=== PATIENT | female | born 1975 | race Caucasian/White ===

== ENCOUNTER 2018-01-05 16:28 | Inpatient (IN) ==
--- NOTE | 2018-01-05 16:54 | Emergency Department Note ---
Disposition Clinical Impression: Alcohol abuse, Suicidal ideation Alcohol intoxication Qualifiers: Complication of substance-induced condition: uncomplicated Qualified Code(s): F10.920 - Alcohol use, unspecified with intoxication, uncomplicated Disposition: Admitted As Inpatient Condition: Fair Time of Disposition: 18:46 Psych HPI - General Chief Complaint: ED Psychiatric Symptoms Stated Complaint: SI/psych eval Time Seen by Provider: 01/05/18 16:35 Source: patient Mode of arrival: ambulatory Limitations: no limitations Nursing Notes Reviewed: Yes Vital Signs Reviewed: Yes - History of Present Illness HPI Narrative: 42-year-old female who was roughly 7 weeks , who has been drinking alcohol and is a chronic alcoholic, arrives to the emergency department with depression and suicidal ideation without a plan. The patient states is been ongoing for quite some time and was actually seen a few days ago and evaluated with the patient admits that she did not tell the truth to the psychiatric team at that time. The patient states that she is only had a couple shots of alcohol today and that she wants to get help. She denies any other complaints at this time. She is resting comfortably. Sister is in the room with her and is accompanying her. - Related Data Home Medications Medication Instructions Recorded Confirmed Buprenorphine HCl 8 mg SL BID 01/05/18 01/05/18 Medroxyprogesterone Acetate 150 mg PO Q12W 01/05/18 01/05/18 Allergies Allergy/AdvReac Type Severity Reaction Status Date / Time No Known Allergies Allergy Verified 01/05/18 16:34 All systems ED: reviewed and negative except as stated. Constitutional: Denies: fever, chills, weakness ENT ED: Denies: dysphagia Cardiovascular: Denies: chest pain Respiratory: Denies: dyspnea Gastrointestinal: Denies: abdominal pain Genitourinary: Denies: urgency, dysuria Musculoskeletal: Denies: back pain, neck pain Integumentary: Denies: rash, abrasion Neurological: Denies: headache Past Medical History - Past Medical History Attestation: Yes The following information was validated with the patient. Medical history: Reports: no medical history Surgical history: Reports: non-contributory Psychiatric history: Reports: no psych history - Social History Smoking Status: Never smoker Alcohol use: Reports: heavy, recent Drug use: Reports: none Physical Exam - General Limitations: no limitations General appearance: alert, appears intoxicated, anxious - Head Head exam: atraumatic, normocephalic, normal inspection - Eye Eye exam: Present: normal appearance, PERRL, EOMI - ENT ENT exam: normal exam, normal oropharynx, mucous membranes moist - Neck Neck exam: Present: normal inspection, full ROM, trachea midline - Chest Chest inspection: Present: normal inspection, symmetric chest wall rise - Respiratory Respiratory exam: Present: normal lung sounds bilaterally - Cardiovascular Cardiovascular exam: Present: normal rhythm, tachycardia, normal heart sounds - Extremities Exam Extremities exam: Present: normal inspection, full ROM. Absent: tenderness, pedal edema - Neurological Exam Neurological exam: Present: alert, oriented X3 - Psychiatric Psychiatric exam: Present: depressed, anxious, suicidal ideation. Absent: flat affect, manic, homicidal ideation - Skin Skin exam: Present: warm, dry, intact, normal color Course - Reevaluation(s) Reevaluation #1: Patient's Tylenol level was noted to be 24. The patient does state that she took one Tylenol previously. She denies taking any more than one Tylenol. No other complaints noted. Time: 17:54 Vital Signs Temperature 97.7 F 01/05/18 16:35 Pulse Rate 110 01/05/18 16:35 Respiratory Rate 20 01/05/18 16:35 Blood Pressure 150/91 01/05/18 16:35 O2 Sat by Pulse Oximetry 95 01/05/18 16:35 Temperature 98.6 F 01/05/18 19:49 Pulse Rate 92 01/05/18 19:49 Respiratory Rate 18 01/05/18 19:49 Blood Pressure 129/84 01/05/18 19:49 O2 Sat by Pulse Oximetry 98 01/05/18 19:49 Oxygen Delivery Oxygen Delivery Room Air Psych - MDM Narrative Medical decision making narrative: Patient's workup in the emergency department demonstrates findings concerning for alcohol abuse, opiate and alcohol consistent with intoxication, and concern for withdrawal symptoms. The patient will be admitted to the hospitalist at this time, accepted by Dr. Yao. - Lab Data Result diagrams: 01/05/18 16:36 01/05/18 17:00 Lab Results 01/05/18 01/05/18 01/05/18 Range/Units 16:36 16:36 16:36 WBC 5.0 (4.3-11.1) K/mcL RBC 4.57 (3.82-4.97) M/mcL Hgb 14.9 (11.5-15.4) g/dL Hct 42.6 (35.3-44.9) % MCV 93.2 (83.0-100.0) fL MCH 32.6 (28.0-33.3) pg MCHC 35.0 (31.6-35.5) g/dL RDW 13.9 (11.5-14.5) % Plt Count 156 (140-400) K/mcL MPV 9.5 (9.4-12.4) fL Immature Gran % 0.4 (0-4) % Seg Neutrophils % 54.7 % Lymphocytes % 33.3 % Monocytes % 8.4 % Eosinophils % 2.2 % Basophils % 1.0 % Neutrophils # 2.7 (1.6-8.9) K/mcL Lymphocytes # 1.7 (0.6-4.6) K/mcL Monocytes # 0.4 (0.0-1.3) K/mcL Eosinophils # 0.1 (0.0-0.6) K/mcL Basophils # 0.1 (0.0-0.2) K/mcL Sodium (136-145) mEq/L Potassium (3.5-5.1) mEq/L Chloride (98-107) mEq/L Carbon Dioxide (23-29) mEq/L BUN (6-20) mg/dL Creatinine (0.60-1.20) mg/dL Est GFR ( Amer) (> 60) Est GFR (Non-Af Amer) (> 60) BUN/Creatinine Ratio (6-26) Glucose (70-105) mg/dL Calculated Osmolality (280-300) Calcium (8.6-10.3) mg/dL Serum , Qual (Negative) Urine Color Yellow (Yellow) Urine Clarity Cloudy A (Clear) Urine pH 6.5 (5.0-8.0) pH Units Ur Specific [place] 1.017 (1.010-1.025) Urine Protein 30 H (Neg-Trace) mg/dL Urine Glucose (UA) Normal (Normal) mg/dL Urine Ketones Negative (Negative) mg/dL Urine Blood Small H (Negative) Urine Nitrite Negative (Negative) Urine Bilirubin Negative (Negative) Urine Urobilinogen Normal (Normal) mg/dL Ur Leukocyte Esterase Moderate H (Negative) Urine Microscopic RBC 0-3 (0-3) per hpf Urine Microscopic WBC 15-30 H (0-3) per hpf Ur Squamous Epith Cells Many H (None-Few) per lpf Urine Bacteria Few (None-Few) per hpf Hyaline Casts None Seen (None-Few) per lpf Salicylates (15.0-30.0) mg/dL Acetaminophen (10-20) mcg/mL Ur Drug Screen Interp See Below Ethyl Alcohol (Less than 10) mg/dL 01/05/18 01/05/18 Range/Units 17:00 17:00 WBC (4.3-11.1) K/mcL RBC (3.82-4.97) M/mcL Hgb (11.5-15.4) g/dL Hct (35.3-44.9) % MCV (83.0-100.0) fL MCH (28.0-33.3) pg MCHC (31.6-35.5) g/dL RDW (11.5-14.5) % Plt Count (140-400) K/mcL MPV (9.4-12.4) fL Immature Gran % (0-4) % Seg Neutrophils % % Lymphocytes % % Monocytes % % Eosinophils % % Basophils % % Neutrophils # (1.6-8.9) K/mcL Lymphocytes # (0.6-4.6) K/mcL Monocytes # (0.0-1.3) K/mcL Eosinophils # (0.0-0.6) K/mcL Basophils # (0.0-0.2) K/mcL Sodium 144 (136-145) mEq/L Potassium 3.3 L (3.5-5.1) mEq/L Chloride 107 (98-107) mEq/L Carbon Dioxide 24 (23-29) mEq/L BUN 4 L (6-20) mg/dL Creatinine 0.67 (0.60-1.20) mg/dL Est GFR ( Amer) > 60 (> 60) Est GFR (Non-Af Amer) > 60 (> 60) BUN/Creatinine Ratio 6 (6-26) Glucose 108 H (70-105) mg/dL Calculated Osmolality 295 (280-300) Calcium 9.2 (8.6-10.3) mg/dL Serum , Qual Negative (Negative) Urine Color (Yellow) Urine Clarity (Clear) Urine pH (5.0-8.0) pH Units Ur Specific [place] (1.010-1.025) Urine Protein (Neg-Trace) mg/dL Urine Glucose (UA) (Normal) mg/dL Urine Ketones (Negative) mg/dL Urine Blood (Negative) Urine Nitrite (Negative) Urine Bilirubin (Negative) Urine Urobilinogen (Normal) mg/dL Ur Leukocyte Esterase (Negative) Urine Microscopic RBC (0-3) per hpf Urine Microscopic WBC (0-3) per hpf Ur Squamous Epith Cells (None-Few) per lpf Urine Bacteria (None-Few) per hpf Hyaline Casts (None-Few) per lpf Salicylates < 2.5 L (15.0-30.0) mg/dL Acetaminophen 24 H (10-20) mcg/mL Ur Drug Screen Interp Ethyl Alcohol 349 H (Less than 10) mg/dL Psychiatric Medical Clearance - Medical Clearance Checklist Medical History: No Social History Section defined Current Vitals: Last Vital Signs Temp 98.6 F 01/05/18 19:49 Pulse 92 01/05/18 19:49 Resp 18 01/05/18 19:49 BP 129/84 01/05/18 19:49 Pulse Ox 98 01/05/18 19:49 Psychiatric Lab Panel: Drug Levels and Toxicity 01/05/18 17:00 Acetaminophen 24 H Ethyl Alcohol 349 H Abnormal Labs: Abnormal lab results Potassium 3.3 mEq/L (3.5-5.1) L 01/05/18 17:00 BUN 4 mg/dL (6-20) L 01/05/18 17:00 Glucose 108 mg/dL (70-105) H 01/05/18 17:00 Urine Clarity Cloudy (Clear) A 01/05/18 16:36 Urine Protein 30 mg/dL (Neg-Trace) H 01/05/18 16:36 Urine Blood Small (Negative) H 01/05/18 16:36 Ur Leukocyte Esterase Moderate (Negative) H 01/05/18 16:36 Urine Microscopic WBC 15-30 per hpf (0-3) H 01/05/18 16:36 Ur Squamous Epith Cells Many per lpf (None-Few) H 01/05/18 16:36 Salicylates < 2.5 mg/dL (15.0-30.0) L 01/05/18 17:00 Acetaminophen 24 mcg/mL (10-20) H 01/05/18 17:00 Ethyl Alcohol 349 mg/dL (Less than 10) H 01/05/18 17:00
[2018-01-05] MEDS ORDERED: *HR* LORazepam 1 MG TABLET PO ONE (17:11)
--- NOTE | 2018-01-05 17:15 | Emergency Department Note ---
Disposition Clinical Impression: Alcohol abuse, Suicidal ideation Alcohol intoxication Qualifiers: Complication of substance-induced condition: uncomplicated Qualified Code(s): F10.920 - Alcohol use, unspecified with intoxication, uncomplicated Disposition: Admitted As Inpatient Condition: Fair General Adult HPI - General Chief complaint: ED Psychiatric Symptoms Stated complaint: SI/psych eval Time Seen by Provider: 01/05/18 16:35 Source: patient Mode of arrival: ambulatory Limitations: no limitations - History of Present Illness Pain Scale: 7 - Related Data Home Medications Medication Instructions Recorded Confirmed Buprenorphine HCl 8 mg SL BID 01/05/18 01/05/18 Medroxyprogesterone Acetate 150 mg PO Q12W 01/05/18 01/05/18 Allergies Allergy/AdvReac Type Severity Reaction Status Date / Time No Known Allergies Allergy Verified 01/05/18 16:34 Constitutional: Denies: fever, chills, weakness ENT ED: Denies: dysphagia Cardiovascular: Denies: chest pain Respiratory: Denies: dyspnea Gastrointestinal: Denies: abdominal pain Genitourinary: Denies: urgency, dysuria Musculoskeletal: Denies: back pain, neck pain Integumentary: Denies: rash, abrasion Neurological: Denies: headache Past Medical History - Past Medical History Medical history: Reports: no medical history Surgical history: Reports: non-contributory Psychiatric history: Reports: no psych history - Social History Smoking Status: Never smoker Alcohol use: Reports: heavy, recent Drug use: Reports: none Physical Exam - General Limitations: no limitations General appearance: alert, appears intoxicated, anxious Course Vital Signs Temperature 97.7 F 01/05/18 16:35 Pulse Rate 110 01/05/18 16:35 Respiratory Rate 20 01/05/18 16:35 Blood Pressure 150/91 01/05/18 16:35 O2 Sat by Pulse Oximetry 95 01/05/18 16:35 Temperature 98.6 F 01/05/18 19:49 Pulse Rate 92 01/05/18 19:49 Respiratory Rate 18 01/05/18 19:49 Blood Pressure 129/84 01/05/18 19:49 O2 Sat by Pulse Oximetry 98 01/05/18 19:49 Oxygen Delivery Oxygen Delivery Room Air Medical Decision Making - Lab Data Result diagrams: 01/05/18 16:36 01/05/18 17:00 Lab Results 01/05/18 01/05/18 01/05/18 Range/Units 16:36 16:36 16:36 WBC 5.0 (4.3-11.1) K/mcL RBC 4.57 (3.82-4.97) M/mcL Hgb 14.9 (11.5-15.4) g/dL Hct 42.6 (35.3-44.9) % MCV 93.2 (83.0-100.0) fL MCH 32.6 (28.0-33.3) pg MCHC 35.0 (31.6-35.5) g/dL RDW 13.9 (11.5-14.5) % Plt Count 156 (140-400) K/mcL MPV 9.5 (9.4-12.4) fL Immature Gran % 0.4 (0-4) % Seg Neutrophils % 54.7 % Lymphocytes % 33.3 % Monocytes % 8.4 % Eosinophils % 2.2 % Basophils % 1.0 % Neutrophils # 2.7 (1.6-8.9) K/mcL Lymphocytes # 1.7 (0.6-4.6) K/mcL Monocytes # 0.4 (0.0-1.3) K/mcL Eosinophils # 0.1 (0.0-0.6) K/mcL Basophils # 0.1 (0.0-0.2) K/mcL Sodium (136-145) mEq/L Potassium (3.5-5.1) mEq/L Chloride (98-107) mEq/L Carbon Dioxide (23-29) mEq/L BUN (6-20) mg/dL Creatinine (0.60-1.20) mg/dL Est GFR ( Amer) (> 60) Est GFR (Non-Af Amer) (> 60) BUN/Creatinine Ratio (6-26) Glucose (70-105) mg/dL Calculated Osmolality (280-300) Calcium (8.6-10.3) mg/dL Serum , Qual (Negative) Urine Color Yellow (Yellow) Urine Clarity Cloudy A (Clear) Urine pH 6.5 (5.0-8.0) pH Units Ur Specific [place] 1.017 (1.010-1.025) Urine Protein 30 H (Neg-Trace) mg/dL Urine Glucose (UA) Normal (Normal) mg/dL Urine Ketones Negative (Negative) mg/dL Urine Blood Small H (Negative) Urine Nitrite Negative (Negative) Urine Bilirubin Negative (Negative) Urine Urobilinogen Normal (Normal) mg/dL Ur Leukocyte Esterase Moderate H (Negative) Urine Microscopic RBC 0-3 (0-3) per hpf Urine Microscopic WBC 15-30 H (0-3) per hpf Ur Squamous Epith Cells Many H (None-Few) per lpf Urine Bacteria Few (None-Few) per hpf Hyaline Casts None Seen (None-Few) per lpf Salicylates (15.0-30.0) mg/dL Acetaminophen (10-20) mcg/mL Ur Drug Screen Interp See Below Ethyl Alcohol (Less than 10) mg/dL 01/05/18 01/05/18 Range/Units 17:00 17:00 WBC (4.3-11.1) K/mcL RBC (3.82-4.97) M/mcL Hgb (11.5-15.4) g/dL Hct (35.3-44.9) % MCV (83.0-100.0) fL MCH (28.0-33.3) pg MCHC (31.6-35.5) g/dL RDW (11.5-14.5) % Plt Count (140-400) K/mcL MPV (9.4-12.4) fL Immature Gran % (0-4) % Seg Neutrophils % % Lymphocytes % % Monocytes % % Eosinophils % % Basophils % % Neutrophils # (1.6-8.9) K/mcL Lymphocytes # (0.6-4.6) K/mcL Monocytes # (0.0-1.3) K/mcL Eosinophils # (0.0-0.6) K/mcL Basophils # (0.0-0.2) K/mcL Sodium 144 (136-145) mEq/L Potassium 3.3 L (3.5-5.1) mEq/L Chloride 107 (98-107) mEq/L Carbon Dioxide 24 (23-29) mEq/L BUN 4 L (6-20) mg/dL Creatinine 0.67 (0.60-1.20) mg/dL Est GFR ( Amer) > 60 (> 60) Est GFR (Non-Af Amer) > 60 (> 60) BUN/Creatinine Ratio 6 (6-26) Glucose 108 H (70-105) mg/dL Calculated Osmolality 295 (280-300) Calcium 9.2 (8.6-10.3) mg/dL Serum , Qual Negative (Negative) Urine Color (Yellow) Urine Clarity (Clear) Urine pH (5.0-8.0) pH Units Ur Specific [place] (1.010-1.025) Urine Protein (Neg-Trace) mg/dL Urine Glucose (UA) (Normal) mg/dL Urine Ketones (Negative) mg/dL Urine Blood (Negative) Urine Nitrite (Negative) Urine Bilirubin (Negative) Urine Urobilinogen (Normal) mg/dL Ur Leukocyte Esterase (Negative) Urine Microscopic RBC (0-3) per hpf Urine Microscopic WBC (0-3) per hpf Ur Squamous Epith Cells (None-Few) per lpf Urine Bacteria (None-Few) per hpf Hyaline Casts (None-Few) per lpf Salicylates < 2.5 L (15.0-30.0) mg/dL Acetaminophen 24 H (10-20) mcg/mL Ur Drug Screen Interp Ethyl Alcohol 349 H (Less than 10) mg/dL Attestation Statement - Attestation Attestation: I examined this patient and my medical decision-making was reviewed with the Resident Physician. I agree with the documented findings, disposition and treatment plan as described except to the extent set forth below. Patient to the ED complaining of suicidal thoughts. Paranoia. Hallucinations. Alcohol consumption. Patient strike and a half gallon of vodka a day. Problems started after she delivered a baby 7 months ago. No psychiatric history. She is accompanied by her sister. On examination she appears intoxicated slurring her words. Heart regular lungs clear. She is anxious. Plan. Ativan and see what protocol. Medical clearance. Patient will need medical admission as she is a high risk for alcohol withdrawal. Patient is intoxicated with an alcohol level of 349. We will be concern for withdrawal when her level decreases. Patient admitted for detox and psych consult. Oden slip on chart. Patient with a slightly elevated Tylenol level. She denies any attempted overdose. States she took one by mouth Tylenol prior to arrival. Was going to recheck level but has been ordered by hospitalist service.
[2018-01-05 17:18] LABS: Basophils # 0.1 K/mcL (0.0-0.2); Eosinophils # 0.1 K/mcL (0.0-0.6); Eosinophils % 2.2 %; Hematocrit 42.6 % (35.3-44.9); Hemoglobin 14.9 g/dL (11.5-15.4); Immature Granulocytes % 0.4 % (0-4); Lymphocytes # 1.7 K/mcL (0.6-4.6); Lymphocytes % 33.3 %; Mean Corpuscular Hemoglobin 32.6 pg (28.0-33.3); Mean Corpuscular Volume 93.2 fL (83.0-100.0); Mean Platelet Volume 9.5 fL (9.4-12.4); Monocytes # 0.4 K/mcL (0.0-1.3); Monocytes % 8.4 %; Neutrophils # 2.7 K/mcL (1.6-8.9); Platelet Count 156 K/mcL (140-400); Red Blood Count 4.57 M/mcL (3.82-4.97); Red Cell Distribution Width 13.9 % (11.5-14.5); Segmented Neutrophils % 54.7 %
[2018-01-05 17:43] LABS: Acetaminophen 24 mcg/mL (10-20); BUN/Creatinine Ratio 6 (6-26); Blood Urea Nitrogen 4 mg/dL (6-20); Calcium 9.2 mg/dL (8.6-10.3); Carbon Dioxide 24 mEq/L (23-29); Chloride 107 mEq/L (98-107); Ethanol 349 mg/dL (Less than 10); Glucose 108 mg/dL (70-105); Osmolality,Calculated 295 (280-300); Potassium 3.3 mEq/L (3.5-5.1); Salicylate < 2.5 mg/dL (15.0-30.0); Sodium 144 mEq/L (136-145); eGFR For Non-African Americans > 60 (> 60)
[2018-01-05] MEDS ORDERED: *HR* LORazepam 2 MG/ML VIAL IVP PRN (20:01)
[2018-01-05] MEDS ORDERED: diazePAM 10 MG/2 ML SYRINGE IVP PRN (20:01)
[2018-01-05] MEDS ORDERED: Thiamine (B-1) 100 MG, Folic Acid 1 MG, MVI, adult with vitamin K 10 ML in 0.9 % Sodi... IVPB SCH (20:03)
[2018-01-05] MEDS ORDERED: Potassium Chloride Elixir 20 MEQ/15 ML UDC PO ONE (20:15)
[2018-01-05 20:20] LABS: Bilirubin,Urine Negative (Negative); Blood,Urine Small (Negative); Clarity,Urine Cloudy (Clear); Color,Urine Yellow (Yellow); Glucose,Urine (UA) Normal (Normal); Ketones,Urine Negative (Negative); Leukocyte Esterase,Urine Moderate (Negative); Nitrite,Urine Negative (Negative); PH,Urine 6.5 pH Units (5.0-8.0); Protein,Urine 30 mg/dL (Neg-Trace); Specific Gravity,Urine 1.017 (1.010-1.025); Urobilinogen,Urine Normal (Normal)
[2018-01-05 20:21] LABS: Bacteria,Urine Few per hpf (None-Few); Hyaline Casts,Urine None Seen per lpf (None-Few); RBC,Urine 0-3 per hpf (0-3); Squamous Epithelial Cell,Urine Many per lpf (None-Few); WBC,Urine 15-30 per hpf (0-3)
--- NOTE | 2018-01-05 20:50 | Internal Med History&Physical ---
Date of Encounter: 01/05/18 Time of Encounter: 20:43 Internal Medicine - H&P: HPI Chief complaint: alcohol abuse Admitted From: Home Plans for Post Hospital Care: Home History of present illness: Ms. Borges is a 42 year old woman with a history of opiate dependence from longstanding medications for degenerative disc disease currently on buprenorphine who presents to the ER brought in by family members with the complaint of alcohol abuse accompanied by suicidal ideation, hallucinations, delirium and self-harm. History obtained from her sisters is that she started drinking heavily 7 months ago after the of her 3rd child and has spiraled since. She drinks heavily and goes into withdrawal. She has been seen in 3 different hospitals over the past 2 weeks with similar complaints. She feels depressed and wishes to inflict harm on herself. Her last drink was earlier this morning and states that she wakes up in the middle of the night to "take shots". She was evaluated by psychiatry in the ER and with the finding of a very high alcohol level and high risk of withdrawal, it was decided she be admitted to the medical service first and once more stable and "cleared" can be taken to the psychiatric service. At this time she has no active complaints. She does admit to paresthesias of her lower extremities since started her indulgence in alcohol. She is willing and ready to get help as she has never been seen by a psychiatrist. She does report a strong family history of mental illness. Past Med Surg Social Fam HX - Past Medical History Medical history: no medical history Psychiatric history: no psych history - Past Surgical History Surgical History: non-contributory - Social History Smoking Status: Never smoker Alcohol use: heavy, recent Drug use: none Internal Medicine - H&P: Meds Buprenorphine HCl 8 mg SL BID 01/05/18 [History] Medroxyprogesterone Acetate 150 mg PO Q12W 01/05/18 [History] 3 Allergy/AdvReac Type Severity Reaction Status Date / Time No Known Allergies Allergy Verified 01/05/18 16:34 All Systems PM: A 10-system review of systems was performed and is negative for pertinent findings except as documented above in the HPI. - Constitutional Vitals: Temp Pulse Resp BP Pulse Ox 98.6 F 92 18 129/84 98 01/05/18 19:49 01/05/18 19:49 01/05/18 19:49 01/05/18 19:49 01/05/18 19:49 Exam: Vitals: Reviewed General: Well developed white female notably jittery but stable Skin: Warm and supple HEENT: Moist mucous membranes. No conjunctivae pallor. Neck: No lymphadenopathy. No JVD. No carotid bruits. No palpable thyroid. Chest: Normal thoracic expansion. Normal breath sounds. Clear to auscultation. Heart: Normal S1 & S2; tachycardic. No rubs or murmurs. Abdomen: Non-distended, soft and non-tender to palpation. No peritoneal reaction. Liver is normal in size. Spleen is not palpable. Extremities: No clubbing, cyanosis or edema. No calf tenderness. Normal distal pulses. Neurological: Awake, alert and oriented to person, place and time. No focal deficits. Psych: Affect appropriate. Internal Med - H&P Results - Labs CBC & Chem 7: 01/05/18 16:36 01/05/18 17:00 - Assessment and plan (1) Alcohol intoxication Current Visit: Yes Status: Acute Assessment and plan: Active user with high risk of withdrawal; now with neuropathy as a complication. Place on CIWA protocol, seizure, fall and aspiration precautions. Lorazepam prn. IV banana bag tonight then transition to PO folate, MVT and thiamine tomorrow. IV LR to continue afterwards for maintenance. Check lytes and replete accordingly. Qualifiers: Complication of substance-induced condition: with unspecified complication Qualified Code(s): F10.929 - Alcohol use, unspecified with intoxication, unspecified (2) Suicidal ideation Current Visit: Yes Status: Acute Assessment and plan: Concern for post- depression given the timing of these thoughts and now using alcohol as a way to handle it. Will remain on 1 to 1 observation; has been pink slipped. Psychiatry re-eval in the morning. (3) Opiate dependence, continuous Current Visit: Yes Status: Chronic Assessment and plan: Has been on buprenorphine for the past 3 years and has not missed a dose. Will resume tonight. (4) Hypokalemia Current Visit: Yes Status: Acute Assessment and plan: Likely related to etoh use. Will replete PO and check serum Mg as well. (5) DVT prophylaxis Current Visit: Yes Status: Acute Assessment and plan: Heparin subQ indicated. - Time Spent With Patient Total time spent is greater than 50% in coordination of care (as documented) at patient's floor/unit and/or counseling patient: 25 - 35 minutes
[2018-01-05 20:54] LABS: Amphetamine Screen,Urine Negative ng/mL (Cutoff=1000); Barbiturate Screen,Urine Negative ng/mL (Cutoff=200); Benzodiazepines Screen,Urine Positive ng/mL (Cutoff=200); Cannabinoid Screen,Urine Negative ng/mL (Cutoff = 50); Cocaine Screen,Urine Negative ng/mL (Cutoff= 300); Opiate Screen,Urine Negative ng/mL (Cutoff=300); Phencyclidine Screen,Urine Negative ng/mL (Cutoff=25)
[2018-01-05] MEDS: *HR* Buprenorphine HCl 8 MG TAB.SUBL SL SCH (21:37)
[2018-01-05] MEDS: *HR* Heparin 5,000 UNIT/ML VIAL SQ SCH (21:37)
[2018-01-06] MEDS ORDERED: Pantoprazole 40 MG VIAL IVP ONE (01:00)
[2018-01-06] MEDS: *HR* LORazepam 2 MG/ML VIAL IVP PRN ×3 (01:13→23:03)
[2018-01-06] MEDS: *HR* Heparin 5,000 UNIT/ML VIAL SQ SCH ×4 (05:18→21:27)
[2018-01-06] MEDS: Ringers Solution, Lactated 1,000 ML IVC SCH ×3 (05:19→23:04)
[2018-01-06 06:08] LABS: Eosinophils # 0.1 K/mcL (0.0-0.6); Eosinophils % 2.2 %; Hematocrit 40.5 % (35.3-44.9); Hemoglobin 13.8 g/dL (11.5-15.4); Immature Granulocytes % 0.2 % (0-4); Lymphocytes # 1.7 K/mcL (0.6-4.6); Lymphocytes % 40.9 %; Mean Corpuscular HGB Conc 34.1 g/dL (31.6-35.5); Mean Corpuscular Hemoglobin 33.3 pg (28.0-33.3); Mean Corpuscular Volume 97.6 fL (83.0-100.0); Mean Platelet Volume 10.2 fL (9.4-12.4); Monocytes # 0.4 K/mcL (0.0-1.3); Monocytes % 8.6 %; Neutrophils # 1.9 K/mcL (1.6-8.9); Platelet Count 130 K/mcL (140-400); Red Blood Count 4.15 M/mcL (3.82-4.97); Red Cell Distribution Width 13.9 % (11.5-14.5); Segmented Neutrophils % 47.1 %
[2018-01-06 07:17] LABS: Acetaminophen < 10 mcg/mL (10-20); Alanine Aminotransferase 38 Units/L (7-52); Albumin 4.2 g/dL (3.5-5.7); Albumin/Globulin Ratio 1.8 (1.1-2.2); Alkaline Phosphatase 62 Units/L (34-104); Aspartate Amino Transferase 75 Units/L (13-39); BUN/Creatinine Ratio 8 (6-26); Bilirubin,Direct 0.3 mg/dL (0.0-0.2); Bilirubin,Total 1.3 mg/dL (0.3-1.0); Blood Urea Nitrogen 5 mg/dL (6-20); Calcium 8.7 mg/dL (8.6-10.3); Carbon Dioxide 25 mEq/L (23-29); Chloride 109 mEq/L (98-107); Ethanol 14 mg/dL (Less than 10); Globulin 2.4 g/dL (2.4-3.5); Glucose 109 mg/dL (70-105); Magnesium 1.8 mg/dL (1.6-2.6); Osmolality,Calculated 294 (280-300); Phosphorous 3.3 mg/dL (2.7-4.5); Potassium 3.9 mEq/L (3.5-5.1); Sodium 143 mEq/L (136-145); Total Protein 6.6 g/dL (6.4-8.9); eGFR For Non-African Americans > 60 (> 60)
[2018-01-06] MEDS: Vitamin B Complex/Vit C/Vit E 1 EACH TABLET PO SCH (09:12)
[2018-01-06] MEDS: Folic Acid 1 MG TABLET PO SCH (09:12)
[2018-01-06] MEDS: *HR* Buprenorphine HCl 8 MG TAB.SUBL SL SCH ×2 (09:12→21:26)
[2018-01-06] MEDS: Thiamine (B-1) 100 MG TABLET PO SCH (09:12)
[2018-01-06] MEDS: *HR* Promethazine 25 MG/ML VIAL IVP PRN ×2 (09:14→18:43)
--- NOTE | 2018-01-06 16:07 | Psychiatry Progress Note ---
Date of Encounter: 01/06/18 Time of Encounter: 14:15 Subjective Interval history: Psychiatric consultation note: 42 years old female admitted to the hospital for evaluation of alcohol intoxication and suicidal ideation. Psychiatric consultation requested to evaluate suicidal ideation. From the records patient has been drinking heavily for the last several months after having a baby. Her EtOH level on admission was 349. UDS was positive for benzo. Patient was guarded and uncooperative with evaluation and did not provide any history of psychiatric treatment or substance abuse treatment. She did not express any thoughts of suicide or plans. Patient is currently on CIWA scale for stabilization. Review of Systems Psychiatric: Reports: suicidal ideation Results - Vital Signs Vital Signs: Temp Pulse Resp BP Pulse Ox 98.3 F 77 16 130/75 96 01/06/18 10:53 01/06/18 10:53 01/06/18 10:53 01/06/18 10:53 01/06/18 10:53 - Drug Levels and Toxicology Drug Levels and Toxicology: Drug Levels and Toxicity 01/06/18 05:03 Acetaminophen < 10 L Ethyl Alcohol 14 H - Labs Labs: Laboratory Results - last 24 hr 01/05/18 01/06/18 01/06/18 21:14 05:03 05:03 WBC 4.1 L RBC 4.15 Hgb 13.8 Hct 40.5 MCV 97.6 MCH 33.3 MCHC 34.1 RDW 13.9 Plt Count 130 L MPV 10.2 Immature Gran % 0.2 Seg Neutrophils % 47.1 Lymphocytes % 40.9 Monocytes % 8.6 Eosinophils % 2.2 Basophils % 1.0 Neutrophils # 1.9 Lymphocytes # 1.7 Monocytes # 0.4 Eosinophils # 0.1 Basophils # 0.0 Sodium 143 Potassium 3.9 Chloride 109 H Carbon Dioxide 25 BUN 5 L Creatinine 0.65 Est GFR ( Amer) > 60 Est GFR (Non-Af Amer) > 60 BUN/Creatinine Ratio 8 Glucose 109 H POC Glucose 90 Calculated Osmolality 294 Calcium 8.7 Phosphorus 3.3 Magnesium 1.8 Total Bilirubin 1.3 H Direct Bilirubin 0.3 H Indirect Bilirubin 1.0 AST 75 H ALT 38 Alkaline Phosphatase 62 Serum Total Protein 6.6 Albumin 4.2 Globulin 2.4 Albumin/Globulin Ratio 1.8 Acetaminophen < 10 L Ethyl Alcohol 14 H Assessment and Plan (1) Alcohol intoxication Current visit: Yes Status: Acute Additional Plan: 1. Continue medical stabilization of the patient, patient history suggests possibility of DTs risk 2. when patient is medically stable, please reconsult psychiatry. Thank you for consultation. Qualifiers: Complication of substance-induced condition: with unspecified complication Qualified Code(s): F10.929 - Alcohol use, unspecified with intoxication, unspecified Consult Discharge Plan - Plan Referrals: NONE,PCP [Primary Care Provider] - Psychiatry Exam - Constitutional Vitals: Temp Pulse Resp BP Pulse Ox 98.3 F 77 16 130/75 96 01/06/18 10:53 01/06/18 10:53 01/06/18 10:53 01/06/18 10:53 01/06/18 10:53 General appearance: age & developmentally appropriate, well-nourished, unkempt, thin - Musculoskeletal Gait: normal Station: relaxed Strength & Tone: normal for patient - Psychiatric Patient Orientation: Yes Person, Yes Time, Yes Place Level of alertness: Sedated Behavior: calm, uncooperative, guarded, withdrawn Psychomotor activity: Slowed Eye Contact: Minimal Contact Mood Description: Euthymic/stable, Depressed Affect description: congruent with mood, constricted Speech Volume: Normal Speech pattern: normal rate, normal rhythm, normal tone, fluent, spontaneous, slowed, limited Language & Vocabulary: consistent with education Thought Process: Linear, Goal Oriented, Slowed Thinking Thought Content: No Suicidal ideation, No Homicidal ideation, No Overt delusions Perceptual Disturbances: No Auditory hallucinations, No Visual hallucinations Attention Span Ability: Unable to Focus Memory Description: Grossly Intact Patient Reliability: Not Reliable Historian Fund of knowledge: Yes abstraction ability, Yes aware of current events Intelligence Estimate: Average Judgment: Limited Insight: Partial
--- NOTE | 2018-01-06 16:22 | Internal Med Progress Note ---
Date of Encounter: 01/06/18 Time of Encounter: 09:30 - Assessment and plan (1) Alcohol intoxication Current Visit: Yes Status: Acute Assessment and plan: Chronic alcohol abuse with acute alcohol intoxication - counseled about cessation Continue folic acid, thiamine, IV fluids and multivitamins IV Ativan as needed for withdrawal, continue CIWA protocol Alcohol level - 349 UDS - positive for benzos Repeat labs in a.m., monitor closely, anticipate inpatient psych placement Qualifiers: Complication of substance-induced condition: with unspecified complication Qualified Code(s): F10.929 - Alcohol use, unspecified with intoxication, unspecified (2) Suicidal ideation Current Visit: Yes Status: Acute Assessment and plan: Depression with suicidal ideation Patient is currently in a psych hold Continue one-to-one sitter. Anticipate inpatient psych placement Psychiatry has evaluated the patient (3) Depression Current Visit: Yes Status: Chronic Assessment and plan: Chronic depression with anxiety Patient is not on any home medications Plan as per psychiatry Qualifiers: Depression Type: major depressive disorder Active/Remission status: currently active Major depression episode severity: moderate Qualified Code( s): F33.1 - Major depressive disorder, recurrent, moderate (4) Opiate dependence, continuous Current Visit: Yes Status: Chronic Assessment and plan: Chronic opiate dependence Patient is on Buprenorphine at home (5) DVT prophylaxis Current Visit: Yes Status: Acute Assessment and plan: Continue heparin subcutaneous - Time Spent With Patient 25 - 35 minutes - Subjective Interval history: Examined this morning. Patient is awake and alert. She seems very anxious. Not in any distress. Denies chest pain or shortness of breath. Complains of back pain. Complains of generalized weakness. Patient continues to have suicidal ideations. Psychiatry has evaluated the patient. No other acute events or complaints. Admitted for alcohol intoxication and suicidal ideation. Patient also has a history of opioid dependence. She will probably need psych placement. Patient is at high risk for DTs. Continue CIWA protocol. Continue to monitor closely. - Constitutional Vitals: Temp Pulse Resp BP Pulse Ox 98.3 F 77 16 130/75 96 01/06/18 10:53 01/06/18 10:53 01/06/18 10:53 01/06/18 10:53 01/06/18 10:53 General appearance: Present: cachectic, A&O X 3, no acute distress, answers questions appropriately Exam: Chronically ill-appearing. Gen. weakness. Anxious. - Head Head exam: Present: atraumatic - Eye Eye exam: Present: EOMI - ENT ENT exam: Present: mucous membranes dry - Neck Neck exam general surgery: Present: supple - Respiratory Respiratory exam: Present: CTAB - Cardiovascular Cardiovascular exam: Present: RRR, +S1, +S2 - GI/Abdominal GI/Abdominal exam: Present: soft, no peritoneal signs. Absent: distended, guarding, rebound, tenderness - Extremities Exam Extremities exam: Absent: calf tenderness, pedal edema, tenderness - Neurological Exam Neurological exam: Present: alert, oriented X3, no focal deficits. Absent: facial droop, speech deficit - Psychiatric Psychiatric exam: Present: anxious, depressed, suicidal ideation Internal Medicine: Result - Labs CBC & Chem 7: 01/06/18 05:03 01/06/18 05:03 Labs: Short CBC 01/06/18 Range/Units 05:03 WBC 4.1 L (4.3-11.1) K/mcL Hgb 13.8 (11.5-15.4) g/dL Hct 40.5 (35.3-44.9) % Plt Count 130 L (140-400) K/mcL Neutrophils # 1.9 (1.6-8.9) K/mcL BMP 01/06/18 05:03 Sodium 143 Potassium 3.9 Chloride 109 H Carbon Dioxide 25 BUN 5 L Creatinine 0.65 Glucose 109 H Calcium 8.7 Liver Function 01/06/18 Range/Units 05:03 Total Bilirubin 1.3 H (0.3-1.0) mg/dL Direct Bilirubin 0.3 H (0.0-0.2) mg/dL AST 75 H (13-39) Units/L ALT 38 (7-52) Units/L Alkaline Phosphatase 62 (34-104) Units/L Albumin 4.2 (3.5-5.7) g/dL Consult Discharge Plan - Plan Referrals: NONE,PCP [Primary Care Provider] -
[2018-01-06] MEDS: cefTRIAXone 1,000 MG in Water for inj. (sterile) 20 ML 10 ML IVP SCH (18:43)
[2018-01-07] MEDS: *HR* Heparin 5,000 UNIT/ML VIAL SQ SCH ×3 (05:56→21:04)
[2018-01-07 05:57] LABS: Basophils % 0.9 %; Eosinophils # 0.2 K/mcL (0.0-0.6); Eosinophils % 4.5 %; Hematocrit 39.4 % (35.3-44.9); Hemoglobin 13.3 g/dL (11.5-15.4); Immature Granulocytes % 0.2 % (0-4); Lymphocytes # 1.5 K/mcL (0.6-4.6); Mean Corpuscular HGB Conc 33.8 g/dL (31.6-35.5); Mean Corpuscular Volume 97.8 fL (83.0-100.0); Mean Platelet Volume 10.7 fL (9.4-12.4); Monocytes # 0.3 K/mcL (0.0-1.3); Monocytes % 6.6 %; Neutrophils # 2.3 K/mcL (1.6-8.9); Platelet Count 108 K/mcL (140-400); Red Blood Count 4.03 M/mcL (3.82-4.97); Red Cell Distribution Width 13.3 % (11.5-14.5); Segmented Neutrophils % 53.8 %
[2018-01-07 06:16] LABS: BUN/Creatinine Ratio 12 (6-26); Blood Urea Nitrogen 7 mg/dL (6-20); Calcium 9.4 mg/dL (8.6-10.3); Carbon Dioxide 25 mEq/L (23-29); Chloride 107 mEq/L (98-107); Glucose 89 mg/dL (70-105); Osmolality,Calculated 287 (280-300); Potassium 3.8 mEq/L (3.5-5.1); Sodium 140 mEq/L (136-145); eGFR For Non-African Americans > 60 (> 60)
[2018-01-07] MEDS: cefTRIAXone 1,000 MG in Water for inj. (sterile) 20 ML 10 ML IVP SCH (09:13)
[2018-01-07] MEDS: *HR* Buprenorphine HCl 8 MG TAB.SUBL SL SCH ×2 (09:14→21:04)
[2018-01-07] MEDS: Folic Acid 1 MG TABLET PO SCH (09:14)
[2018-01-07] MEDS: Vitamin B Complex/Vit C/Vit E 1 EACH TABLET PO SCH (09:14)
[2018-01-07] MEDS: Thiamine (B-1) 100 MG TABLET PO SCH (09:14)
[2018-01-07] MEDS: Acetaminophen 325 MG TABLET PO PRN ×2 (13:57→21:04)
[2018-01-07] MEDS ORDERED: *HR* LORazepam 2 MG/ML VIAL IVP PRN (16:48)
--- NOTE | 2018-01-07 16:53 | Internal Med Progress Note ---
Date of Encounter: 01/07/18 Time of Encounter: 09:50 - Assessment and plan (1) Alcohol intoxication Current Visit: Yes Status: Acute Assessment and plan: Chronic alcohol abuse with acute alcohol intoxication - counseled extensively about cessation Continue folic acid, thiamine, IV fluids and multivitamins IV Ativan as needed for withdrawal/anxiety, continue CIWA protocol Alcohol level - 349 UDS - positive for benzos Add Paxil for depression and anxiety Patient will need reevaluation by psychiatry. No suicidal ideation or suicidal thoughts. Qualifiers: Complication of substance-induced condition: with unspecified complication Qualified Code(s): F10.929 - Alcohol use, unspecified with intoxication, unspecified (2) Suicidal ideation Current Visit: Yes Status: Resolved Assessment and plan: Depression with suicidal ideation - patient denies suicidal thoughts or SI today Psych hold was rescinded Add Paxil 20 mg daily Psychiatry has evaluated the patient - further recommendations at this time (3) Depression Current Visit: Yes Status: Chronic Assessment and plan: Chronic depression with anxiety Patient is not on any home medications Add Paxil 20 mg daily Psychiatry has evaluated the patient Qualifiers: Depression Type: major depressive disorder Active/Remission status: currently active Major depression episode severity: moderate Qualified Code( s): F33.1 - Major depressive disorder, recurrent, moderate (4) Opiate dependence, continuous Current Visit: Yes Status: Chronic Assessment and plan: Chronic opiate dependence - stable Patient is on Buprenorphine at home (5) DVT prophylaxis Current Visit: Yes Status: Acute Assessment and plan: Continue Heparin subcutaneous - Subjective Interval history: Examined this morning. Patient is awake and alert. Not in any distress. Denies chest pain or shortness of breath. Patient complains of intermittent anxiety. Tolerating oral diet. DENIES SUICIDAL IDEATION OR THOUGHTS TODAY. No other acute events or complaints. Admitted for alcohol intoxication and suicidal ideation. Patient also has a history of opioid dependence. Patient is at high risk for DTs. Continue CIWA protocol. Continue to monitor closely. Psychiatry has evaluated the patient. No further recommendations at this time. The recommendation for inpatient psych placement. Discussed with patient and her mother this afternoon regarding condition and plan of care in detail. They understood and agreed. No unanswered questions. - Constitutional Vitals: Temp Pulse Resp BP Pulse Ox 98.8 F 69 16 120/76 97 01/07/18 15:02 01/07/18 15:02 01/07/18 15:02 01/07/18 15:02 01/07/18 15:02 General appearance: Present: cachectic, cooperative, A&O X 3, no acute distress , answers questions appropriately Exam: Chronically ill-appearing, anxious. Able to provide history. - Head Head exam: Present: atraumatic - Eye Eye exam: Present: EOMI - ENT ENT exam: Present: mucous membranes moist - Neck Neck exam general surgery: Present: supple - Respiratory Respiratory exam: Present: CTAB - Cardiovascular Cardiovascular exam: Present: RRR, +S1, +S2 - GI/Abdominal GI/Abdominal exam: Present: soft, no peritoneal signs. Absent: distended, firm , guarding, tenderness - Extremities Exam Extremities exam: Absent: calf tenderness, pedal edema, tenderness - Neurological Exam Neurological exam: Present: alert, oriented X3, no focal deficits. Absent: facial droop, speech deficit - Psychiatric Psychiatric exam: Present: anxious, depressed. Absent: homicidal ideation, suicidal ideation Internal Medicine: Result - Labs CBC & Chem 7: 01/07/18 03:46 01/07/18 03:46 Labs: Short CBC 01/07/18 Range/Units 03:46 WBC 4.3 (4.3-11.1) K/mcL Hgb 13.3 (11.5-15.4) g/dL Hct 39.4 (35.3-44.9) % Plt Count 108 L (140-400) K/mcL Neutrophils # 2.3 (1.6-8.9) K/mcL BMP 01/07/18 03:46 Sodium 140 Potassium 3.8 Chloride 107 Carbon Dioxide 25 BUN 7 Creatinine 0.60 Glucose 89 Calcium 9.4 Consult Discharge Plan - Plan Referrals: NONE,PCP [Primary Care Provider] -
[2018-01-08] MEDS: *HR* Heparin 5,000 UNIT/ML VIAL SQ SCH ×2 (05:29→14:51)
[2018-01-08] MEDS ORDERED: Acetaminophen 325 MG TABLET PO PRN (05:35)
[2018-01-08] MEDS: Vitamin B Complex/Vit C/Vit E 1 EACH TABLET PO SCH (07:54)
[2018-01-08] MEDS: cefTRIAXone 1,000 MG in Water for inj. (sterile) 20 ML 10 ML IVP SCH (07:54)
[2018-01-08] MEDS: Thiamine (B-1) 100 MG TABLET PO SCH (07:54)
[2018-01-08] MEDS: Folic Acid 1 MG TABLET PO SCH (07:54)
[2018-01-08] MEDS: *HR* Buprenorphine HCl 8 MG TAB.SUBL SL SCH (07:54)
[2018-01-08 11:32] VITALS: BP 124/73
--- NOTE | 2018-01-08 14:45 | Psychiatry Progress Note ---
Date of Encounter: 01/08/18 Time of Encounter: 13:35 Subjective Interval history: Psychiatric consultation follow-up: Patient seen for follow-up. She is feeling better, denies suicidal ideation, motivated to have outpatient treatment for mental health's and substance abuse. She is anxious to see her family. Review of Systems Psychiatric: Reports: suicidal ideation Results - Vital Signs Vital Signs: Temp Pulse Resp BP Pulse Ox 98.0 F 68 16 124/73 98 01/08/18 11:31 01/08/18 11:01/08/18 11:31 01/08/18 11:31 01/08/18 11:31 Assessment and Plan (1) Alcohol intoxication Current visit: Yes Status: Acute Additional Plan: From psychiatric standpoint, patient can be discharged if medically clear. Recommend outpatient follow-up for mental health's and substance abuse. Qualifiers: Complication of substance-induced condition: with unspecified complication Qualified Code(s): F10.929 - Alcohol use, unspecified with intoxication, unspecified Consult Discharge Plan - Plan Referrals: NONE,PCP [Primary Care Provider] - Psychiatry Exam - Constitutional Vitals: Temp Pulse Resp BP Pulse Ox 98.0 F 68 16 124/73 98 01/08/18 11:31 01/08/18 11:31 01/08/18 11:31 01/08/18 11:31 01/08/18 11:31 General appearance: age & developmentally appropriate, well-groomed, well- nourished, thin - Musculoskeletal Gait: normal Station: relaxed Strength & Tone: normal for patient - Psychiatric Patient Orientation: Yes Person, Yes Time, Yes Place Level of alertness: Alert Behavior: calm, cooperative Psychomotor activity: Normal Eye Contact: Maintains Eye Contact Mood Description: Euthymic/stable Affect description: congruent with mood, full range Speech Volume: Normal Speech pattern: normal rate, normal rhythm, normal tone, fluent, spontaneous Language & Vocabulary: consistent with education Thought Process: Linear, Goal Oriented Thought Content: No Suicidal ideation, No Homicidal ideation, No Overt delusions Perceptual Disturbances: No Auditory hallucinations, No Visual hallucinations Attention Span Ability: Capable of Focused Attention Memory Description: Grossly Intact Patient Reliability: Reliable Historian Fund of knowledge: Yes abstraction ability, Yes aware of current events Intelligence Estimate: Average Judgment: Limited Insight: Partial
--- NOTE | 2018-01-08 15:17 | Discharge Summary ---
Orders not resulted at time of discharge: Pending orders 01/06/18 18:50 Culture,Urine [RM] Stat Date of Encounter: 01/08/18 Time of Encounter: 15:00 - Discharge Diagnosis (1) Alcohol intoxication Priority: Primary Status: Resolved Comments: Chronic alcohol abuse with acute alcohol intoxication - counseled extensively about cessation Continue folic acid, thiamine, multivitamins Alcohol level - 349 UDS - positive for benzos Add Paxil for depression and anxiety Psychiatry recommends outpatient follow-up. No suicidal ideation or suicidal thoughts. Stable for discharge home today. Follow-up with psychiatry and primary care physician. Patient will need outpatient treatment for substance abuse and mental health. Qualifiers: Complication of substance-induced condition: with unspecified complication Qualified Code(s): F10.929 - Alcohol use, unspecified with intoxication, unspecified (2) Suicidal ideation Priority: Primary Status: Resolved Comments: Depression with suicidal ideation - denies suicidal ideation or suicidal thoughts at this time Add Paxil 20 mg daily Psychiatry has evaluated the patient - advised outpatient follow-up Follow-up with psychiatry and primary care physician. Patient needs outpatient treatment for substance abuse and mental health. (3) Depression Priority: Primary Status: Chronic Comments: Chronic depression with anxiety - now stable Add Paxil 20 mg daily Psychiatry has evaluated the patient - advised outpatient follow-up Stable for discharge today. Follow-up with psychiatry and primary care physician. Qualifiers: Depression Type: major depressive disorder Active/Remission status: currently active Major depression episode severity: moderate Qualified Code( s): F33.1 - Major depressive disorder, recurrent, moderate (4) Opiate dependence, continuous Priority: Primary Status: Chronic Comments: Chronic opiate dependence - stable Continue home dose of Buprenorphine (5) UTI (urinary tract infection) Priority: Primary Status: Acute Comments: UTI, acute cystitis, present on admission, gram-positive cocci Patient was on IV Rocephin in the hospital. Being discharged on Omnicef. Culture results - gram-positive cocci Qualifiers: Urinary tract infection type: acute cystitis Hematuria presence: without hematuria Qualified Code(s): N30.00 - Acute cystitis without hematuria Hospital course: Ms. Borges is a 42 year old female with past medical history of opiate dependence. Patient presented to ED with complaints of alcohol intoxication and suicidal ideation. Patient was placed immediately in a psych hold. Patient was apparently drinking heavily after having multiple stressors in her life recently. Patient apparently has a history of heavy drinking and also has withdrawl symptoms. Patient was placed on IV Ativan as needed for withdrawal symptoms. Patient was also started on thiamine and folic acid. Patient was evaluated by psychiatry. Patient also was found to have a UTI and was started on IV Rocephin empirically. She is being discharged on Omnicef. Culture results is positive for gram-positive cocci. Patient now denies suicidal ideation or suicidal thoughts. Patient is now back to baseline state. She is not in withdrawal. Examined this morning and this afternoon. She is awake and alert. Not in any distress. Denies chest pain or shortness of breath. No fever. Hemodynamically stable. States she feels better, almost go home. Patient's mother is also at bedside, states that she will be there to support the patient. Patient has been advised by psychiatry to follow up with outpatient regarding substance abuse and for her mental health issues. Patient was started on Paxil during her stay in the hospital. She is being discharged on Paxil 20 mg daily. Patient and her mother have been explained about her condition and plan of care in detail. They understood and agreed. No unanswered questions. Advised to return if symptoms worsen. Follow up with psychiatry and primary care physician. States discharge home today. Discharge discussed with: patient, family - Time Spent with Patient Total time spent providing and/or coordinating discharge services: Greater than 30 minutes - Discharge Medications Prescriptions: Cefdinir [Omnicef] 300 mg PO BID 7 Days #14 capsule Folic Acid 1 mg PO DAILY #30 tablet Paroxetine [Paxil] 20 mg PO DAILY #30 tablet Thiamine (B-1) [Vitamin B-1] 100 mg PO DAILY #20 tablet Vitamin B Complex/Vit C/Vit E [Stresstab] 1 each PO DAILY #30 tablet Home Medications: Buprenorphine HCl 8 mg SL BID 01/05/18 [History] Medroxyprogesterone Acetate 150 mg PO Q12W 01/05/18 [History] Cefdinir [Omnicef] 300 mg PO BID 7 Days #14 capsule 01/08/18 [Rx] Folic Acid 1 mg PO DAILY #30 tablet 01/08/18 [Rx] Paroxetine [Paxil] 20 mg PO DAILY #30 tablet 01/08/18 [Rx] Thiamine (B-1) [Vitamin B-1] 100 mg PO DAILY #20 tablet 01/08/18 [Rx] Vitamin B Complex/Vit C/Vit E [Stresstab] 1 each PO DAILY #30 tablet 01/08/18 [ Rx] Allergies/Adverse Reactions: 3 Allergy/AdvReac Type Severity Reaction Status Date / Time No Known Allergies Allergy Verified 01/05/18 16:34 Date of admission: 01/06/18 06:17 Primary care physician: PCP NONE Discharging clinician: Crescencio Rios Anticipated date of discharge: 01/08/18 - Constitutional Vitals: Temp Pulse Resp BP Pulse Ox 98.0 F 68 16 124/73 98 01/08/18 11:31 01/08/18 11:31 01/08/18 11:31 01/08/18 11:31 01/08/18 11:31 General appearance: Present: cachectic, cooperative, A&O X 3, no acute distress , answers questions appropriately Exam: Not in any distress. Able to provide history. At baseline mental state. - Head Head exam: Present: atraumatic - Eye Eye exam: Present: EOMI - ENT ENT exam: Present: mucous membranes moist - Neck Neck exam general surgery: Present: supple - Respiratory Respiratory exam: Present: CTAB - Cardiovascular Cardiovascular exam: Present: RRR, +S1, +S2 - GI/Abdominal GI/Abdominal exam: Present: soft, no peritoneal signs. Absent: distended, firm , guarding, tenderness - Extremities Exam Extremities exam: Present: radial pulses palpable and symmetrical. Absent: calf tenderness, cyanotic, pedal edema, tenderness - Neurological Exam Neurological exam: Present: alert, oriented X3, no focal deficits. Absent: facial droop, speech deficit - Psychiatric Psychiatric exam: Present: depressed, normal mood - Patient Status Disposition: Home, Self-Care Condition: Good Functional capacity at discharge: independent ambulation Overall status at discharge: patient is back to baseline - Discharge Instructions Follow Up With: NONE,PCP [Primary Care Provider] - - Diet and Activity Activity: increase activity as tolerated, resume usual activities as tolerated Diet: advance to your usual diet
== END 2018-01-08 15:57 | disposition home or self-care (01) | DRG 773 ==
LOC: EMEROOARM 16:28 → 3BNU 16:28
PROVIDERS: ADMIT Internal Medicine; ATTEND Internal Medicine